=== PATIENT | male | born 1945 | race Caucasian/White ===

== ENCOUNTER → 2016-09-13 | Outpatient (CLI) | payer MEDICARE ==
[2016-04-05 10:12] VITALS: BP 127/71
[~2016-09-13] MED LIST: ACET500T33 PO; ALPR0.25 PO; ATEN25TA PO; ATEN50TA PO; CEFP200T PO; CELE200C PO; CHLO25TA PO; CITA20TA5 PO; DOCU-27 PO; DOXY100C2 PO; FERR-26 PO; FERR325T58 PO; FLUT100D IH; FLUT12AE IH; FLUT1DIS IH; FLUT1DIS3 INH; FURO80TA3 PO; FURO80TA72 PO; IBUP200C9 PO; IBUP200T58 PO; LISI10TA PO; LOSA25TA4 PO; MELO-150 PO; MULT-245 PO; OXYC-244 PO; OXYC-250 PO; PANT40TA3 PO; PREG50CA PO; PROAIR HFA8.5 GM IH; SUCR1TAB29 PO; SULF1TAB24 PO; TOLN108P TP; WARF5TAB7 PO
--- NOTE | 2016-09-13 14:59 | RAD ---
EXAM: DIGITAL DIAGNOSTIC BILATERAL. HISTORY: Tender, palpable left breast nodule. COMPARISON: None. FINDINGS: Digital mammography was performed. Computer-aided detection (CAD) was utilized. Routine CC and MLO views of both breasts were obtained. BBs were placed on the nipples with a triangular marker placed in the medial superior left breast in area of clinical interest, although during the direct discussion by Dr. Saleh with the patient, the localization of the mass was somewhat difficult and there was some variation in location of the palpable mass. Patient indicated that the general location was retroareolar. The retroareolar left breast demonstrates retroareolar of focal asymmetry which measures about 6 cm in maximum dimension. This is compatible with moderate gynecomastia. Mild amount of right gynecomastia is also seen. No suspicious mass, suspicious microcalcifications, or architectural distortion is identified. No significant underlying abnormality is seen associated with the triangular indicator. IMPRESSION: 1. Moderate left gynecomastia. 2. Mild right gynecomastia. BI-RADS CATEGORY: 2 BENIGN FINDING(S) RECOMMENDED FOLLOW-UP: CLIN FOLLOW UP IMAGING CLINICALLY INDICATED PQRS compliance statement: Patient information was entered into a reminder system with a target due date for the next mammogram. Mammography is a sensitive method for finding small breast cancers, but it does not detect them all and is not a substitute for careful clinical examination. A negative mammogram does not negate a clinically suspicious finding and should not result in delay in biopsying a clinically suspicious abnormality. "Our facility is accredited by the [employer] Mammography Program."
== END | disposition home or self-care (01) ==
LOC: MAMMO 14:08
PROVIDERS: ATTEND Nurse Practitioner Family
DX: N63 Unspecified lump in breast (principal); N62 Hypertrophy of breast
CPT/HCPCS: 77051; G0204; 77066

== ENCOUNTER → 2017-11-25 | Outpatient (CLI) | payer MEDICARE | END | disposition home or self-care (01) | LOC: KCIC US 12:51 | DX: M79.89 Other specified soft tissue disorders (principal) | CPT/HCPCS: 76881 ==

== ENCOUNTER → 2018-02-23 | Outpatient (CLI) | payer MEDICARE | END | disposition home or self-care (01) | LOC: KCIC 11:49 | DX: K21.9 Gastro-esophageal reflux disease without esophagitis (principal); M79.662 Pain in left lower leg; R14.3 Flatulence | CPT/HCPCS: 71046; 74018 ==

== ENCOUNTER → 2018-05-04 | Outpatient (CLI) | payer MEDICARE ==
[2016-04-05 10:12] VITALS: BP 127/71
[~2018-05-04] MED LIST changes: -CITA20TA5 PO; +CITA20TA6 PO; +DOCU-109 PO; -DOCU-27 PO; -FERR-26 PO; +FERR325T14 PO; -MELO-150 PO; +MELO15TA23 PO; -OXYC-244 PO; -OXYC-250 PO; +OXYC-327 PO; +OXYC-328 PO; -SUCR1TAB29 PO; +SUCR1TAB35 PO; -TOLN108P TP; +TOLN108P2 TP; +WARF-31 PO; -WARF5TAB7 PO
--- NOTE | 2018-05-04 13:35 | CARD ---
MR#: [id number] Date of Study: 05/04/2018 Ordering Physician: JOZEF HANSON, Referring Physician: JOZEF HANSON Tech: Tamara Ibarra RDCS APPROVED REPORT EXAM: Two-dimensional and M-mode echocardiogram with Doppler and color Doppler. Other Information Quality : Technically Limited Technically limited study due to body habitus. INDICATION Dyspnea 2D DIMENSIONS RVDd2.8 (2.9-3.5cm)Left Atrium(2D)3.9 (1.6-4.0cm) IVSd0.9 (0.7-1.1cm)Aortic Root(2D)3.3 (2.0-3.7cm) LVDd6.9 (3.9-5.9cm)LVOT Diameter2.2 (1.8-2.4cm) PWd1.0 (0.7-1.1cm)LVDs5.6 (2.5-4.0cm) FS (%) 19.2 %SV96.0 ml Aortic Valve AoV Peak Eddie.132.5cm/sAoV VTI31.4cm AO Peak GR.7.0mmHgLVOT Peak Eddie.108.6cm/s AO Mean GR.4mmHgAVA (VMAX)3.08cm2 Mitral Valve MV E Bmvlcvcm97.4cm/sMV DECEL [id number] MV A Tctrjgjy15.2cm/sE/A Ratio1.3 Tricuspid Valve TR P. Qnalarmw919sa/sRAP IJWXGEKZ57tyFl TR Peak Gr.40pxAiNUJY69eyTl Pulmonary Vein S1 Hmavfdaa66.4cm/sD2 Mrrgzkfc85.0cm/s LEFT VENTRICLE Technically difficult study. The left ventricle is normal size. There is normal left ventricular wall thickness. The Ejection Fraction is at the lower limits of normal to mildly decreased. Left ventricu lar ejection fraction is 45-50%. There is minimal global hypokinesis of the left ventricle. Transmitr al Doppler flow pattern is Grade II-pseudonormal filling dynamics. RIGHT VENTRICLE The right ventricle is normal size. The right ventricular systolic function is normal. ATRIA The left atrium size is normal. The right atrium size is normal. The interatrial septum is intact wit h no evidence for an atrial septal defect or patent foramen ovale as noted on 2-D or Doppler imaging. AORTIC VALVE The aortic valve is calcified but opens well. Doppler and Color Flow revealed no significant aortic r egurgitation. There is no significant aortic valvular stenosis. MITRAL VALVE The mitral valve is calcified but opens well. Mitral annular calcification is mild. There is no evide nce of mitral valve prolapse. There is no mitral valve stenosis. Doppler and Color Flow revealed no m itral valve regurgitation noted. TRICUSPID VALVE The tricuspid valve is normal in structure and function. Doppler and Color Flow revealed trace tricus pid regurgitation. The PA pressure was estimated at 37 mmHg. There is no tricuspid valve stenosis. PULMONIC VALVE The pulmonic valve is not well visualized but seen best in the subcostal view. Doppler and Color Flow revealed no pulmonic valvular regurgitation. There is no pulmonic valvular stenosis. GREAT VESSELS The aortic root is normal in size. The ascending aorta is not well seen. The IVC is dilated and colla pses <50% with inspiration. PERICARDIAL EFFUSION There is no evidence of significant pericardial effusion. Critical Notification Critical Value: No <Conclusion> Technically difficult study. The left ventricle is normal size. The Ejection Fraction is at the lower limits of normal to mildly decreased. Left ventricular ejection fraction is 45-50%. There is minimal global hypokinesis of the left ventricle. There is no significant aortic valvular stenosis. Doppler and Color Flow revealed no significant aortic regurgitation. Doppler and Color Flow revealed no mitral valve regurgitation noted. Doppler and Color Flow revealed trace tricuspid regurgitation. The PA pressure was estimated at 37 mmHg. Signed by : Brien Gerardo MD Electronically Approved : 05/04/2018 13:34:30
[2018-05-05] MEDS: REGADENOSON 0.4 MG/5 ML DISP.SYRIN. IV ONE (08:00)
--- NOTE | 2018-05-05 12:46 | RAD ---
MR#: [id number] Date of Study: 05/05/2018 Ordering Physician: JOZEF HANSON, Referring Physician: OPAL CAZARES Tech: HI Hebert, ARRT (R) (N) APPROVED REPORT Test Type: Pharmacological Stress Nurse/Tech: Tori Hunt RN Test Indications: Chest pain and dyspnea on exertion Cardiac History: Hypertension Medications: See Electronic Medical Record Medical History: See Electronic Medical Record Resting ECG: SB Resting Heart Rate: 52 bpm Resting Blood Pressure: 126/68mmHg Pretest Chest Pain: Atypical angina Nurse/Tech Notes S1,S2 and lungs are diminished throughout. Patient stated he has been short of breath and experienci ng chest pain in his left apical area. Consent: The procedure was explained to the patient in lay terms. Informed consent was witnessed. Jez eout was entered into [employer]. History and Stress Test performed by MICHAEL Smith Pharm. Details Pharmacologic stress testing was performed using 0.4mg per 5ml of regadenoson given intravenously ove r 7-10 seconds. Stress Symptoms Dyspnea POST EXERCISE Reason for Termination: Infusion complete Target HR: No Max HR: 68 bpm Max Blood Pressure: 117/54mmHg Blood Pressure response to exercise: Normal blood pressure response during stress. Heart Rate response to exercise: Abnormal Chest Pain: Yes. Arrhythmia: No. ST Change: No. INTERPRETATION Stress EKG Conclusion: Baseline EKG showed sinus rhythm. No ischemic changes at peak stress. No arr hythmias. Imaging Protocol IMAGE PROTOCOL: Rest Tc-99m/stress Tc-99m 2 days Rest: Stress: Viability: Radiopharm.Tc99m BtkbwrcknHg88j Sestamibi Tdsq81mDq 33.5mCi Img Date 05/04/2018 05/05/2018 Inj-Img Efrc84rrb. 60min. Rest Admin Site:IV - Right AntecubitalAdministrator:HI Hebert, ARRT (R)(N) Stress Admin Site: IV - Right AntecubitalAdministrator: MICHAEL Smith STRESS DATA End Diast. Vol.123.0mlLVEDV index BSA47.0ml End Syst. Vol.53.0mlLVESV index BSA20.0ml Myocardial Bils217.0gEject. Mlucscvc09.0% Stress Scores Regional WT1.00Summed WT12.00 Regional WM0.00Summed WM7.00 LV Perfusion Scintigraphic images showed fixed defect involving the inferior wall most probably diaphragmatic atte nuation artifact based on normal wall motion. No other fixed or reversible defects seen. Wall Motion Normal left ventricle systolic function with ejection fraction calculated at 58%. LV Perf. Quant 17 Seg. SSS2.00 17 Seg. SRS14.00 17 Seg. SDS0.00 Stress Defect Extent (% LAD)0.00Rest Defect Extent (% LAD)5.00Rev. Defect Extent (% LAD)0.00 Stress Defect Extent (% LCX) 5.00Rest Defect Extent (% LCX)37.50Rev. Defect Extent (% LCX)0.00 Stress Defect Extent (% RCA)4.40Rest Defect Extent (% RCA)24.40Rev. Defect Extent (% RCA)0.00 Stress Defect Extent (% ROULA)2.60Rest Defect Extent (% ROULA)22.40Rev. Defect Extent (% ROULA)0.00 Conclusion 1. Regadenoson cardioisotope stress test showed diaphragmatic attenuation artifact without any eviden ce for ischemia or infarct. 2. Normal left ventricular systolic function with ejection fraction calculated at 58%. 3. Low risk for cardiac events. Signed by : Jozef Hanson, Electronically Approved : 05/05/2018 12:46:01
== END | disposition home or self-care (01) ==
LOC: NM 08:09
PROVIDERS: ATTEND Internal Medicine Cardiovascular Disease
DX: R07.9 Chest pain, unspecified (principal); R06.09 Other forms of dyspnea; E78.5 Hyperlipidemia, unspecified; J45.909 Unspecified asthma, uncomplicated; I11.0 Hypertensive heart disease with heart failure; I50.9 Heart failure, unspecified; K21.9 Gastro-esophageal reflux disease without esophagitis; Z87.891 Personal history of nicotine dependence; Z90.49 Acquired absence of other specified parts of digestive tract; Z83.3 Family history of diabetes mellitus; Z82.49 Family history of ischemic heart disease and other diseases of the circulatory system
CPT/HCPCS: 78452; 93306; 96374; 96375; A9500; 93017; 96376; J2785

== ENCOUNTER → 2018-06-29 | Outpatient (CLI) | payer MEDICARE ==
[2018-05-23 11:21] VITALS: BP 155/71
[~2018-06-29] MED LIST changes: +CHOL2000 PO; +CITA40TA5 PO; +IOHEXOL 240 MG/ML 50ML VIAL. PO ONE; +IOHEXOL 300 MG/ML 100ML VIAL. IV ONE; +LEVO100T5 PO; -LOSA25TA4 PO; +LOSA25TA5 PO; +OMEP40CA5 PO; +PRED2.5T PO
--- NOTE | 2018-06-29 17:33 | KCIC ---
PQRS Compliance Statement: One or more of the following individualized dose reduction techniques were utilized for this examination: 1. Automated exposure control 2. Adjustment of the mA and/or kV according to patient size 3. Use of iterative reconstruction technique CT ABD PELV W/ORAL IV CONTRAST Clinical Indication: Abdominal pain. Left lower quadrant pain. History of diverticulitis. Comparison: CT abdomen and pelvis with contrast, May 18, 2015. Technique: Helical CT imaging of the abdomen and pelvis is performed after 100 cc of Omnipaque 300 IV contrast. Oral contrast also given. Findings: Lung bases are clear. Cardiac size normal. Cholecystectomy. Liver, pancreas, adrenal glands, and abdominal aorta caliber are normal. Stable round 1 cm hypodense lesion in the anterior spleen, therefore benign. Small bilateral renal cysts. No hydronephrosis. Stomach is unremarkable. No dilated small bowel. Moderate sigmoid colon diverticulosis. Scattered stool in the colon. No colon wall thickening. The appendix is normal. Urinary bladder is normal. Prostate size normal. No pelvic free fluid. Vacuum disc phenomena in the mid lumbar spine. IMPRESSION: 1. No acute abdominal or pelvic abnormality. 2. Moderate distal colon diverticulosis without diverticulitis. Electronically signed by: Haile Willis MD (06/29/2018 5:30 PM) [id number]
== END | disposition home or self-care (01) ==
LOC: KCIC CT 10:31
PROVIDERS: ATTEND Internal Medicine Gastroenterology
DX: N28.1 Cyst of kidney, acquired (principal); K57.30 Diverticulosis of large intestine without perforation or abscess without bleeding; K57.92 Diverticulitis of intestine, part unspecified, without perforation or abscess without bleeding; Z90.49 Acquired absence of other specified parts of digestive tract
CPT/HCPCS: 74177; 82565; Q9966; Q9967

== ENCOUNTER 2018-09-22 08:05 | Outpatient (CLI) | payer MEDICARE ==
[2018-09-22] VITALS (9 sets, daily range): BP systolic 101–165; BP diastolic 53–75
[~2018-09-22] VITALS: Ht 182.9 cm; Wt 149.7 kg
[~2018-09-22 08:05] MED LIST changes: +ALBU2.5V8 IH; -CHLO25TA PO; +CHLO25TA10 PO; +IODIXANOL 320 MG/ML 100 ML VIAL. ONE; -IOHEXOL 240 MG/ML 50ML VIAL. PO ONE; -IOHEXOL 300 MG/ML 100ML VIAL. IV ONE; +LIDOCAINE 1% PF 30 ML VIAL. ONE; -LOSA25TA5 PO; +LOSA25TA54 PO; -OXYC-327 PO; -OXYC-328 PO; +OXYC1TAB19 PO; +OXYC1TAB22 PO; -PROAIR HFA8.5 GM IH
[2018-09-22 09:01] LABS: HEMATOCRIT 41.6 % (39.0-53.0); HEMOGLOBIN 14.3 g/dL (13.0-17.5); RED BLOOD COUNT 4.57 x10^6/uL (4.30-5.70); RED CELL DISTRIBUTION WIDTH 14.4 % (11.5-14.5)
[2018-09-22 09:09] LABS: CREATININE 0.8 mg/dL (0.7-1.3); GFR 95.3; POTASSIUM 4.5 mmol/L (3.5-5.1)
[2018-09-22 09:12] LABS: PROTHROMBIN TIME PATIENT 12.5 SEC (11.7-14.0)
[2018-09-22] MEDS ORDERED: fentaNYL PF VIAL 100 MCG/2 ML VIAL ONE (10:09)
[2018-09-22] MEDS ORDERED: MIDAZOLAM HCL/PF 2 MG/2 ML VIAL. ONE (10:09)
[2018-09-22] MEDS ORDERED: fentaNYL PF VIAL 100 MCG/2 ML VIAL IV ONE (10:45)
[2018-09-22] MEDS ORDERED: MIDAZOLAM HCL/PF 2 MG/2 ML VIAL. IV ONE (10:45)
[2018-09-22] MEDS ORDERED: IODIXANOL 320 MG/ML 100 ML VIAL. IART ONE (10:45)
[2018-09-22] MEDS ORDERED: LIDOCAINE 1% PF 30 ML VIAL. INJ ONE (10:45)
[2018-09-22] MEDS ORDERED: IV 1/2 NORMAL SALINE 1,000 ML IV SCH ×2 (11:05→11:11)
--- NOTE | 2018-09-22 11:05 | PDOC ---
MODERATE SEDATION ASSESSMENT RISKS/ALTERNATIVES Risks/Alternatives Risks and alternatives of this type of sedation and procedure discussed with: RISK/ALTERNATIVES: Patient H & P ON CHART H & P H & P on chart and reviewed for co-morbid conditions and appropriate labs. H&P ON CHART: Yes STATUS PREG STATUS ASSESSED: N/A MEDS/ALLERGIES REVIEWED Meds/Allergies Reviewed Medications and Allergies including time and route of recently administered narcotics and sedatives. MEDS/ALLERGIES REVIEWED: Yes ASA RATING ASA RATING: II AIRWAY ASSESSMENT Airway Assessment Airway patency, oral function limitations, presence of caps, crowns, dentures, partials, and ability to extend neck assessed. AIRWAY ASSESSMENT: Yes MALLAMPATI SCORE MALLAMPATI SCORE: II PRE-SEDATION ASSESSMENT PRE-SEDATION ASSESSMENT: Yes JOZEF HANSON MD Sep 22, 2018 11:05
[2018-09-22] MEDS ORDERED: NITROGLYCERIN SUBLINGUAL 0.4 MG BOTTLE OF 25. SL PRN ×2 (11:15)
--- NOTE | 2018-09-22 11:30 | CARD ---
MR#: [id number] Date of Study: 09/22/2018 Ordering Physician: JOZEF LI, Referring Physician: JOZEF LI Tech: Deysi Allred RTR APPROVED REPORT Technologist: Deysi Allred RTR Nurse: Michelle Campos R.N. Procedure(s) performed: Right and left heart catheterization, selective coronary angiography and left ventriculography Moderate Sedation time: 39 Mins INDICATION The indication(s) include : Refractory dyspnea on exertion of uncertain etiology. PROCEDURE NARRATIVE After explaining the risks, benefits and alternative options, informed consent was obtained from inocencio ent. Patient was brought to the cardiac Senior Back End Java Developer and his right groin was prepped and draped in the us ual fashion. 20 mL of 2% lidocaine was infiltrated into the skin and subcutaneous tissues for local a nesthesia. Arterial and venous accesses were obtained in the right common femoral artery and vein res pectively and 6 and 8 [place]an sheaths inserted. A 7.5 [place]an Picher-Randy catheter was then advanced thro ugh the venous sheath and intracardiac pressures, oxygen saturations and cardiac output by thermodilu tion method were measured. Subsequently, 6 [place]an JL4 and 6 [place]an JR4 catheters were used to perform selective angiography of the left and right coronary artery. 6 [place]an pigtail catheter was used to p erform left ventriculography. Patient tolerated the procedure well. Hemostasis was achieved using myn x closure device. There were no immediate complications. FINDINGS A. RIGHT HEART CATHETERIZATION 1. Intracardiac pressures: Mean right atrial pressure 9 mmHg, right ventricular pressure 32/1 mmHg, pulmonary artery pressure 34/11 mmHg with mean PA pressure of 22 mmHg and pulmonary capillary wedge p ressure 15 mmHg. No significant pulmonary hypertension noted. 2. Oxygen saturations: Right atrium 69%, pulmonary artery 73%, femoral arterial sheath 96%. No evid ence of intracardiac shunt. 3. Cardiac output by thermodilution method 5.2 L/m. B. LEFT HEART CATHETERIZATION 1. Hemodynamics: Left ventricle end-diastolic pressure 13 mmHg. No pullback gradient across the aor tic valve. 2. Left ventriculography: Normal left ventricle systolic function with ejection fraction estimated at 55-60%. No significant mitral regurgitation seen. 3. Coronary angiography: a. The left main coronary artery arose from the left sinus of Valsalva, gave rise to the left anteri or descending and left circumflex arteries and did not show any significant stenosis. b. The left anterior descending artery showed 30% stenosis in the midsegment. c. The left circumflex artery did not show any significant stenosis. d. The right coronary artery was a dominant vessel arising from the right sinus of Valsalva that did not show any significant stenosis. Conclusion 1. No significant coronary artery disease 2. Normal left ventricle systolic function with ejection fraction estimated at 55-60% 3. No significant pulmonary hypertension with mean PA pressure of 22 mmHg and mean pulmonary capilla ry wedge pressure 15 mmHg. 4. No evidence of intracardiac shunt. Signed by : Jozef Li, Electronically Approved : 09/22/2018 11:29:03
== END 2018-09-22 14:03 | disposition home or self-care (01) ==
LOC: CCL 08:05
PROVIDERS: ATTEND Internal Medicine Cardiovascular Disease
DX: I25.10 Atherosclerotic heart disease of native coronary artery without angina pectoris (principal); R00.1 Bradycardia, unspecified; I10 Essential (primary) hypertension; M79.606 Pain in leg, unspecified; Z88.0 Allergy status to penicillin; Z88.8 Allergy status to other drugs, medicaments and biological substances; Z88.1 Allergy status to other antibiotic agents; Z79.899 Other long term (current) drug therapy; Z90.49 Acquired absence of other specified parts of digestive tract; Z96.651 Presence of right artificial knee joint; Z98.890 Other specified postprocedural states; Z82.49 Family history of ischemic heart disease and other diseases of the circulatory system; Z87.891 Personal history of nicotine dependence; Z91.048 Other nonmedicinal substance allergy status
CPT/HCPCS: 36415; 80048; 85027; 85610; 93460; C1713; C1769; C1773; C1892; G0269; J1644; J2250; J3010; 99152; 99153

== ENCOUNTER → 2018-11-14 | Outpatient (CLI) | payer MEDICARE ==
[2018-09-22 13:30] VITALS: BP 101/53
[~2018-11-14] MED LIST changes: -IODIXANOL 320 MG/ML 100 ML VIAL. ONE; -LIDOCAINE 1% PF 30 ML VIAL. ONE
--- NOTE | 2018-11-14 13:18 | RAD ---
MR#: [id number] Date of Study: 11/14/2018 Ordering Physician: JOZEF HANSON, Referring Physician: JOZEF HANSON, Tech: LB Colunga, RDMS, RTR APPROVED REPORT Patient Location : OUT-PATIENT Indications Lower Extremity Pain : Risk Factors Obesity Greater Saphenous Veins (GSV) Significant venous relux noted in the RIGHT GSV at the following levels : Superficial Femoral Junctio n Significant venous relux noted in the LEFT GSV at the following levels : Superficial Femoral Junction Accessory Veins Right Anterior Accessory Vein : Present : Yes Reflux : No Leftt Anterior Accessory Vein : Present : Yes Reflux : No Right Posterior Accessory Vein : Present : No Reflux : No Left Posterior Accessory Vein : Present : No Reflux : No Findings Grayscale images of the right groin demonstrate a lymph node measuring approximately 3.6 x 2 x 1 cm. The right great and lesser saphenous veins do not reveal any obvious evidence of thrombus on pacheco sca le images and do not reveal any obvious evidence of reflux on spectral imaging. The left great saphenous vein has less than one second of reflux. No obvious thrombus is noted. The l eft lesser saphenous vein does not show any evidence of reflux. The superficial varicosities in the l eft cody area do not show any evidence of reflux. Bilateral anterior accessory saphenous veins do not show any evidence of reflux. Critical Notification Critical Value: No <Conclusion> 1. Negative for reflux in the bilateral greater, anterior accessory saphenous and small saphenous vei ns. 2. There is mild deep venous reflux noted at the level of the saphenofemoral junctions. 3. Incidental note is made of a right groin lymph node with measurements as noted above. Consider ded icated lymph node exam. Signed by : Ishan Cantu, Electronically Approved : 11/14/2018 13:18:07
== END | disposition home or self-care (01) ==
LOC: US 08:48
PROVIDERS: ATTEND Internal Medicine Cardiovascular Disease
DX: I87.2 Venous insufficiency (chronic) (peripheral) (principal); R19.03 Right lower quadrant abdominal swelling, mass and lump
CPT/HCPCS: 93970

== ENCOUNTER → 2019-10-08 | Outpatient (CLI) | payer MEDICARE ==
[2018-09-22 13:30] VITALS: BP 101/53
[~2019-10-08] MED LIST changes: +OMEP40CA45 PO; -OMEP40CA5 PO; -PANT40TA3 PO; +PANT40TA77 PO
--- NOTE | 2019-10-08 12:57 | CARD ---
MR#: [id number] Date of Study: 10/08/2019 Ordering Physician: JOZFE LI, Referring Physician: JOZEF LI, Tech: Marleen Nova SOPHIA APPROVED REPORT EXAM: Two-dimensional and M-mode echocardiogram with Doppler and color Doppler. Other Information Quality : AverageHR: 59bpm Rhythm : NSRTechnically limited study due to morbid obesity INDICATION Hypertension. 2D DIMENSIONS RVDd4.1 (2.9-3.5cm)IVSd1.1 (0.7-1.1cm) Aortic Root(2D)3.6 (2.0-3.7cm)LVDd5.7 (3.9-5.9cm) LVOT Diameter2.1 (1.8-2.4cm)PWd1.1 (0.7-1.1cm) LVDs4.4 (2.5-4.0cm)FS (%) 23.6 % SV75.5 mlLVEF(%)46.4 (>50%) Aortic Valve AoV Peak Eddie.123.2cm/Lorena Peak GR.6.1mmHg LVOT Peak Eddie.97.1cm/sAVA (VMAX)2.73cm2 Mitral Valve MV E Ytnmmsfh73.4cm/sMV DECEL YZAP214vr MV A Afvkmvmj42.1cm/sE/A Ratio1.7 MV A Ufnkhfcz590bn Pulmonary Valve PV Peak Gotdvybk97.5cm/s Pulmonary Vein S1 Udqrshhf62.6cm/sD2 Gpuekklb64.4cm/s PVa hrlhbkjq010zgrb LEFT VENTRICLE The left ventricle is normal size. There is normal left ventricular wall thickness. The left ventricu lar systolic function is normal. The Ejection Fraction is 55%. There is normal LV segmental wall belen on. Transmitral Doppler flow pattern is Grade II-pseudonormal filling dynamics. RIGHT VENTRICLE The right ventricle is normal size. The right ventricular systolic function is normal. ATRIA Mild biatrial enlargement. The interatrial septum is intact with no evidence for an atrial septal def ect or patent foramen ovale as noted on 2-D or Doppler imaging. AORTIC VALVE Aortic valve is not well visualized. No aortic regurgitation. There is no significant aortic valvular stenosis. MITRAL VALVE The mitral valve is normal in structure and function. There is no mitral valve stenosis. Trace mitral regurgitation. TRICUSPID VALVE The tricuspid valve is normal in structure and function. No tricuspid regurgitation. Unable to assess right heart pressures. There is no tricuspid valve stenosis. PULMONIC VALVE The pulmonic valve is not well visualized. GREAT VESSELS The aortic root is normal in size. Ascending aorta was not well visualized. The IVC is normal in size and collapses >50% with inspiration. PERICARDIAL EFFUSION There is no evidence of significant pericardial effusion. Critical Notification Critical Value: No <Conclusion> The left ventricular systolic function is normal. The Ejection Fraction is 55%. There is normal LV segmental wall motion. Trace mitral regurgitation. There is no evidence of significant pericardial effusion. Signed by : Jozef Li, Electronically Approved : 10/08/2019 12:57:16
== END | disposition home or self-care (01) ==
LOC: ECHO 09:31
PROVIDERS: ATTEND Internal Medicine Cardiovascular Disease
DX: I10 Essential (primary) hypertension (principal)
CPT/HCPCS: 93306

== ENCOUNTER → 2020-09-08 | Outpatient (CLI) | payer MEDICARE ==
[2018-09-22 13:30] VITALS: BP 101/53
[~2020-09-08] MED LIST changes: -PREG50CA PO; +PREG50CA91 PO
--- NOTE | 2020-09-08 13:32 | KCIC ---
EXAM: Chest, single view. HISTORY: Chest pain. COMPARISON: None. FINDINGS: A frontal view of the chest is obtained. There is no infiltrate, pleural effusion or pneumo thorax. The heart is normal in size. IMPRESSION: No acute pulmonary finding. Electronically signed by: Emily Portillo MD (09/08/2020 1:29 PM) [id number]
== END ==
LOC: KCIC 13:03
PROVIDERS: ATTEND Nurse Practitioner Family
DX: R06.02 Shortness of breath (principal)
CPT/HCPCS: 71046

== ENCOUNTER → 2021-10-05 | Day surgery (SDC) | payer MEDICARE ==
[~2021-10-05] VITALS: Ht 182.9 cm; Wt 159.3 kg
[~2021-10-05] MED LIST changes: -CITA40TA5 PO; +CITA40TA6 PO; -DOXY100C2 PO; +DOXY100C3 PO; -FLUT100D IH; +FLUT100D2 IH; +GABA600T7 PO; +LEVO175T5 PO; +LIDOCAINE 2% PF 5 ML VIAL. ONE; +LOSA100T14 PO; -OMEP40CA45 PO; +OMEP40CA7 PO; +PROPOFOL 10 MG/ML (20ML) VIAL. IV ONE
[2021-10-05 12:30] VITALS: BP 169/88
--- NOTE | 2021-10-05 13:39 | PDOC4 ---
PROCEDURE Procedure EGD/dilation Indication: dysphagia Meds:per anesthesia Findings: E--Healed, baselinegrade?, reflux at 45cm. G-Normal D--Normal to second portion. Dilated with 54F Fuchs. No resistance. Tod. well. IMP: Reflux, healed. REC: Continue home meds, diet. F/u, re-dilate prn. MANGO SHELTON MD Oct 05, 2021 13:39
[2021-10-05 14:06] VITALS: BP 112/53
== END | disposition home or self-care (01) ==
LOC: ENDOS 12:05
PROVIDERS: ATTEND Internal Medicine Gastroenterology
DX: R13.10 Dysphagia, unspecified (principal); K21.00 Gastro-esophageal reflux disease with esophagitis, without bleeding; K31.89 Other diseases of stomach and duodenum; E66.3 Overweight; I11.0 Hypertensive heart disease with heart failure; I50.9 Heart failure, unspecified; J43.9 Emphysema, unspecified; G47.30 Sleep apnea, unspecified; K21.9 Gastro-esophageal reflux disease without esophagitis; M19.90 Unspecified osteoarthritis, unspecified site; F41.9 Anxiety disorder, unspecified; Z90.49 Acquired absence of other specified parts of digestive tract; Z98.890 Other specified postprocedural states; Z79.899 Other long term (current) drug therapy; Z87.891 Personal history of nicotine dependence; Z72.89 Other problems related to lifestyle; Z88.0 Allergy status to penicillin; Z88.1 Allergy status to other antibiotic agents; Z88.8 Allergy status to other drugs, medicaments and biological substances
CPT/HCPCS: 43235; 43450; J2704